=== PATIENT | female | born 1960 | race Caucasian/White ===

== ENCOUNTER → 2023-06-29 | Outpatient (CLI) | payer SELFPAY ==
--- NOTE | 2023-06-29 12:40 | LES_PTH ---
PATIENT: LEAH CHRISTIAN LOC: [facility] U#:[id number] AGE/SX: 62/F ROOM: RE06/29/[address]: ADORE MARTINEZ MD : 1960 BED: DIS: 06/29/2023 SPEC #: [id number] RECD: 06/29/23 15:02 STATUS: CLRAI CHELSEA #: [id number] ISHAAN: 06/29/23 12:[address]: ADORE MARTINEZ DEPT: SURGICAL PATHOLOGY RECD BY: Beckie Allen Tissues: Skin of face, NOS Procedures: Surgery Specimen Level IV HEADER OPERATION: External biopsy right cheek PRE-OP DIAGNOSIS: Right cheek lesion TISSUE SUBMITTED: Right cheek lesion MICROSCOPIC DIAGNOSIS Right cheek lesion, biopsy: Subepithelial fibrosis, favor irritation fibroma. Acanthosis. Negative for atypia or malignancy. See comment. 07/03/2023 COMMENT Correlation with clinical findings and appropriate follow up are necessary. MICROSCOPIC DESCRIPTION Slides are reviewed. GROSS DESCRIPTION Received in fixative is one container labeled with the patient's name and designated cheek. The specimen consists of a round piece of isbell-white mucosal tissue measuring 0.5 x 0.4 x 0.2 cm. The specimen is inked, bisected and submitted entirely in one cassette. / SJ:rg 06/30/2023 TC:5 [facility]: [id number]
== END | disposition home or self-care (01) ==
LOC: LABSPEC 15:29
PROVIDERS: Referring Provider Dentist Oral and Maxillofacial Surgery; Visit Provider Dentist Oral and Maxillofacial Surgery
DX: L83 Acanthosis nigricans (principal)
CPT/HCPCS: 88305

== ENCOUNTER 2024-01-15 13:51 | Emergency (ER) | payer OTHER, SELFPAY ==
[2024-01-15 13:54] VITALS: BP 142/80; PULSE 88; RESP 18; TEMP 36.3; O2SAT 97; BMI 24.8
[2024-01-15 14:22] LABS: Absolute Lymphocyte Count 1.88 X10^3/uL (0.83-4.51); Absolute Neutrophil Count 3.1 X10^3/uL (2.0-7.7); Basophil# 0.01 X10^3/uL; Basophil% 0.2 % (0-1); Eosinophil# 0.02 X10^3/uL; Eosinophils% 0.4 % (0-5); Hematocrit 40.5 % (37-47); Hemoglobin 13.4 g/dL (12.0-15.0); Lymphocyte # 1.88 X10^3/ul (0.83-4.51); Lymphocyte % 35.5 % (19-41); Mean Corp Hgb Conc 33.1 g/dL (32-36); Mean Corpuscular Hgb 29.1 pg (27.0-32.0); Mean Platelet Vol. 9.8 fl (6.2-12.0); Monocyte% 5.7 % (0-10); NRBC Flagged by Analyzer 0 % (0-5); Neutrophil # 3.07 X10^3/uL (2.7-7.7); Platelet Count 274 K/mm3 (150-450); RBC Distribution Width CV 12.4 % (11.6-14.6); RBC Distribution Width SD 39.8 fl (35.1-43.9); White Blood Count 5.3 K/mm3 (4.4-11.0)
[2024-01-15 14:28] LABS: Bacteria 0 SEEN /hpf (None Seen); Mucous, Urine 0 SEEN /hpf (<or=2+); Red Blood Cells-Urine 0 SEEN /hpf (0-5); Squamous Epithelial Cells - UA 0 SEEN /hpf (5-10); White Blood Cells 0 SEEN /hpf (0-5)
[2024-01-15 14:35] LABS: AST(SGOT) 14 U/L (15-37); Alanine Aminotransfer ALT/SGPT 11 U/L (13-56); Albumin, Serum 3.8 g/dL (3.2-5.0); Alkaline Phosphatase 54 U/L (45-117); Anion Gap 5 (5-15); BUN 7 mg/dL (7-18); BUN/Creat Ratio 10.1 RATIO (10-20); Calcium,Total 9.7 mg/dL (8.5-10.1); Chloride 106 mmol/L (98-107); Creatinine, Serum 0.69 mg/dL (0.55-1.02); EST Glomerular Filtration Rate 91 mL/min (>60); Est Glom Filt Rate - Afr Amer 110 mL/min (>60); Estimated Creatinine Clearance 73.58 ml/min; Globulin 3.7 g/dL (2.2-4.2); Glucose 111 mg/dL (74-106); Potassium 3.6 mmol/L (3.5-5.1); Protein, Total 7.5 g/dL (6.4-8.2); Sodium Level 137 mmol/L (136-145)
[2024-01-15 14:39] LABS: Color, Urine Yellow (Yellow); Glucose, Dipstick Normal (Normal); Ketone-Dipstick 50 mg/dl (Negative); Leukocyte Esterase-Dipstick 25 /ul (Negative); Nitrite-Dipstick Negative (Negative); Occult Blood-Urine 25 /ul (Negative); Protein-Dipstick 15 mg/dl (Negative); Specific Gravity, Urine 1.025 (1.002-1.030); Urine Bilirubin Dipstick Negative (Negative); Urine Clarity Clear (Clear); Urine Urobilinogen Normal (Normal)
--- NOTE | 2024-01-15 14:56 | EDS_ITS ---
HPI <MERYL Granado - Last Filed: 01/15/24 19:53> HPI - GI History of Present Illness Chief Complaint: Abd Pain Narrative Narrative: Patient presenting with generalized abdominal pain that she has had intermittently since the end of October. She reports that her symptoms are most persistent in her left lower quadrant, right upper quadrant, and left upper quadrant. She was seen last week in [facility] but they were unable to perform a CT scan as their machine was down. She reports that she has had a decreased appetite, occasional reflux symptoms, and her reports concerns that she is losing weight. She has had intermittent loose stools. She has previous abdominal surgeries that include tubal ligation and hernia repair. She denies fevers, chills, nausea, vomiting, melena, hematochezia, and urinary sy mptoms. PFSH <MERYL Granado - Last Filed: 01/15/24 19:53> PFSH Medical History Thyroid activity decreased Allergy/AdvReac Type Severity Reaction Status Date / Time prednisone Allergy Other Verified 01/15/24 13:53 Surgical History S/P hernia surgery Social History Smoking Status: Never smoker ROS <MERYL Granado - Last Filed: 01/15/24 19:53> ROS ED Constitutional Constitutional ED: Denies chills or fever(s) Cardiovascular Cardiovascular: Denies chest pain Respiratory/Chest Respiratory/Chest: Denies cough or dyspnea Gastrointestinal Gastrointestinal: Reports abdominal pain and diarrhea; Denies constipation, melena, nausea or vomiting Genitourinary Genitourinary ED: Denies dysuria, hematuria or urinary urgency Musculoskeletal Musculoskeletal: Denies arthralgias or myalgias Integumentary Denies rash Neurologic Neurologic: Denies weakness EXAM <MERYL Granado - Last Filed: 01/15/24 19:53> Physical Exam Const Vital Signs: 01/15/24 13:54 01/15/24 15:53 01/15/24 16:47 Temperature 97.4 F L 97.9 F 98.8 F Temperature Source Temporal Oral Pulse Rate 88 74 74 Respiratory Rate 18 16 16 Blood Pressure 142/80 H 125/73 H 124/78 H Blood Pressure Mean 100 90 93 Pulse Ox 97 99 98 Oxygen Delivery Method Room Air Room Air Positive well nourished, well developed and no apparent distress General Appearance ED: well developed HEENT Reports normocephalic and head/scalp atraumatic Mouth ED: Yes moist mucous membranes normal Eyes PERRL and EOMs intact bilaterally Neck full ROM and supple Chest Wall inspection of chest normal Resp normal respiratory effort and clear to auscultation bilaterally Cardio regular rate and regular rhythm GI soft to palpation, non-tender, non-distended and no masses GI Narrative: no Uribe sign, no rigidity or guarding, negative McBurney's point tenderness Back/Spine normal ROM and normal to inspection Extremity normal to inspection and full ROM Neuro oriented x3, CN's II-XII intact bilaterally, moves all extremities, no focal motor deficits and no sensory deficits noted Sensorium / Orientation: awake and alert Psych mental status grossly normal and thought process normal Skin no rashes or lesions noted and no wounds <Dr. Rowdy Woods DO - Last Filed: 01/15/24 23:33> Physical Exam Const Vital Signs: 01/15/24 13:54 01/15/24 15:53 01/15/24 16:47 Temperature 97.4 F L 97.9 F 98.8 F Temperature Source Temporal Oral Pulse Rate 88 74 74 Respiratory Rate 18 16 16 Blood Pressure 142/80 H 125/73 H 124/78 H Blood Pressure Mean 100 90 93 Pulse Ox 97 99 98 Oxygen Delivery Method Room Air Room Air [facility] <MERYL Granado - Last Filed: 01/15/24 19:53> [facility] Narrative Medical decision making narrative: Patient presenting due to generalized abdominal pain she has had intermittently over the past 2 months. She has seen her PCP for this, they thought that maybe it was due to her thyroid. She has not had any abdominal imaging. She went to [facility] last week and they were unable to perform a CT scan. She is requesting that this be performed today. Abdominal labs obtained to rule out leukocytosis, anemia, electrolyte abnormality, KENIA, pancreatitis, UTI, and hepatobiliary etiology. Labs overall are unremarkable. CT scan negative for any acute findings. Given she has had this chronic abdominal pain I do think she would benefit from a GI referral, I will refer her to Dr. Moyer and she will be discharged home in stable condition. I did encourage she follow-up with her PCP as well. Lab Data Attestation: I reviewed the patient's lab results. Labs: Laboratory Results - last 24 hr 01/15/24 01/15/24 14:10 14:20 WBC 5.3 RBC 4.60 Hgb 13.4 Hct 40.5 MCV 88.0 MCH 29.1 MCHC 33.1 RDW Std Deviation 39.8 RDW Coeff of Harriet 12.4 Plt Count 274 MPV 9.8 Immature Gran % (Auto) 0.200 Neut % (Auto) 58.0 Lymph % (Auto) 35.5 Kane % (Auto) 5.7 Eos % (Auto) 0.4 Baso % (Auto) 0.2 Absolute Neuts (auto) 3.1 Absolute Lymphs (auto) 1.88 Nucleated RBC % 0 Sodium 137 Potassium 3.6 Chloride 106 Carbon Dioxide 26.0 Anion Gap 5 BUN 7 Creatinine 0.69 Estim Creat Clear Calc 73.58 Est GFR (MDRD) Af Amer 110 Est GFR (MDRD) Non-Af 91 BUN/Creatinine Ratio 10.1 Glucose 111 H Calcium 9.7 Total Bilirubin 0.80 AST 14 L ALT 11 L Alkaline Phosphatase 54 Total Protein 7.5 Albumin 3.8 Globulin 3.7 Albumin/Globulin Ratio 1.0 Urine Color Yellow Urine Clarity Clear Urine pH 5.0 Ur Specific [place] 1.025 Urine Protein 15 H Urine Glucose (UA) Normal Urine Ketones 50 H Urine Occult Blood 25 H Urine Nitrite Negative Urine Bilirubin Negative Urine Urobilinogen Normal Ur Leukocyte Esterase 25 H Urine RBC 0 SEEN Urine WBC 0 SEEN Ur Squamous Epith Cells 0 SEEN Urine Bacteria 0 SEEN Urine Mucus 0 SEEN Radiography Diagnostic Testing: Clinical Impression(s) from Imaging Studies Abdomen/Pelvis CT 01/15/24 15:05 IMPRESSION: 1. No acute abdominal or pelvic abnormality. 2. Diverticulosis coli. 3. Right L5 spondylolysis with grade 1 spondylolisthesis Electronically Signed: Dillon Alexander MD at 15:54 EDT , <Dr. Rowdy Woods, DO - Last Filed: 01/15/24 23:33> [facility] Narrative Medical decision making narrative: Patient presenting due to generalized abdominal pain she has had intermittently over the past 2 months. She has seen her PCP for this, they thought that maybe it was due to her thyroid. She has not had any abdominal imaging. She went to [facility] last week and they were unable to perform a CT scan. She is requesting that this be performed today. Abdominal labs obtained to rule out leukocytosis, anemia, electrolyte abnormality, KENIA, pancreatitis, UTI, and hepatobiliary etiology. Labs overall are unremarkable. CT scan negative for any acute findings. Given she has had this chronic abdominal pain I do think she would benefit from a GI referral, I will refer her to Dr. Moyer and she will be discharged home in stable condition. I did encourage she follow-up with her PCP as well. ED attending note: I evaluated the patient in conjunction with the CHARITY. I agree with his/her statements and above findings. I have personally performed a face to face assessment of the patient and have reviewed the CHARITY Note. I performed a substantive portion of the visit including all aspects of the following. I personally saw the patient performed chart review, physical exam, reviewed labs, imaging (if obtained), and formulated a treatment and management plan. This note was generated with [employer] dictation software. It may contain incorrect words, spelling, and punctuation that were not noted in review of the chart prior to signing. Lab Data Labs: Laboratory Results - last 24 hr 01/15/24 01/15/24 14:10 14:20 WBC 5.3 RBC 4.60 Hgb 13.4 Hct 40.5 MCV 88.0 MCH 29.1 MCHC 33.1 RDW Std Deviation 39.8 RDW Coeff of Harriet 12.4 Plt Count 274 MPV 9.8 Immature Gran % (Auto) 0.200 Neut % (Auto) 58.0 Lymph % (Auto) 35.5 Kane % (Auto) 5.7 Eos % (Auto) 0.4 Baso % (Auto) 0.2 Absolute Neuts (auto) 3.1 Absolute Lymphs (auto) 1.88 Nucleated RBC % 0 Sodium 137 Potassium 3.6 Chloride 106 Carbon Dioxide 26.0 Anion Gap 5 BUN 7 Creatinine 0.69 Estim Creat Clear Calc 73.58 Est GFR (MDRD) Af Amer 110 Est GFR (MDRD) Non-Af 91 BUN/Creatinine Ratio 10.1 Glucose 111 H Calcium 9.7 Total Bilirubin 0.80 AST 14 L ALT 11 L Alkaline Phosphatase 54 Total Protein 7.5 Albumin 3.8 Globulin 3.7 Albumin/Globulin Ratio 1.0 Urine Color Yellow Urine Clarity Clear Urine pH 5.0 Ur Specific [place] 1.025 Urine Protein 15 H Urine Glucose (UA) Normal Urine Ketones 50 H Urine Occult Blood 25 H Urine Nitrite Negative Urine Bilirubin Negative Urine Urobilinogen Normal Ur Leukocyte Esterase 25 H Urine RBC 0 SEEN Urine WBC 0 SEEN Ur Squamous Epith Cells 0 SEEN Urine Bacteria 0 SEEN Urine Mucus 0 SEEN Radiography Diagnostic Testing: Clinical Impression(s) from Imaging Studies Abdomen/Pelvis CT 01/15/24 15:05 IMPRESSION: 1. No acute abdominal or pelvic abnormality. 2. Diverticulosis coli. 3. Right L5 spondylolysis with grade 1 spondylolisthesis Electronically Signed: Dillon Alexander MD at 15:54 EDT , Discharge Plan Triage Chief Complaint: Abd Pain ED Midlevel Provider: Dea Mayfield ED Provider: Rowdy Woods Dx/Rx/DC Orders Clinical Impression: Abdominal pain Instructions: Abdominal Pain Primary Care Provider: Christo Charlton Referrals: Christo Charlton MD [Primary Care Provider] - Comfort,DO Wei [Med Staff - Active Staff] - 1 Week Activity Restrictions/Additional Instructions: Please follow-up with your PCP. I have also given you a GI referral to follow- up with. Return for any worsening of your symptoms. Print Language: Upper Sorbian Disposition Disposition: Home, Self Care Discharge Date/Time: 01/15/24 16:48
--- NOTE | 2024-01-15 15:05 | CT_ITS ---
EXAM: CT ABDOMEN AND PELVIS WITH INTRAVENOUS CONTRAST CLINICAL INDICATION: abdominal pain TECHNIQUE: Helically acquired images were obtained of the abdomen and pelvis with intravenous contrast. This CT exam was performed using one or more of the following dose reduction techniques: automated exposure control, adjustment of the mA and/or kV according to patient size, and/or use of iterative reconstruction technique. CONTRAST: IV 100mL [id number] COMPARISON: No relevant prior studies available. FINDINGS: LOWER THORAX: Normal. Lung bases are clear. No cardiomegaly. No pericardial effusion. ABDOMEN: LIVER: Normal. Homogeneous. No focal mass. GALLBLADDER AND BILE DUCTS: Normal-appearing gallbladder. PANCREAS: Normal. No focal cystic or solid mass. SPLEEN: Normal. Normal size without focal cystic or solid mass. ADRENALS: Normal. No nodules. KIDNEYS AND URETERS: Normal. Normal renal size and position. No hydronephrosis. STOMACH AND BOWEL: Diverticulosis of the colon noted without evidence of acute diverticulitis. PELVIS: APPENDIX: Appendix is visualized and normal in appearance. BLADDER: Normal. REPRODUCTIVE: Unremarkable as visualized. No mass. ABDOMEN and PELVIS: INTRAPERITONEAL SPACE: Normal. No ascites or other fluid collection. No free air. BONES/JOINTS: Right L5 spondylolysis noted with grade1 spondylolisthesis. SOFT TISSUES: Normal. No discrete abdominal or pelvic wall hernia. VASCULATURE: Normal. Abdominal aorta is non-dilated. LYMPH NODES: Normal. No enlarged lymph nodes. CT/Abdomen/Pelvis W IV Cont ONLY IMPRESSION: 1. No acute abdominal or pelvic abnormality. 2. Diverticulosis coli. 3. Right L5 spondylolysis with grade 1 spondylolisthesis Electronically Signed: Dillon Alexander MD at 15:54 EDT ,
[2024-01-15] MEDS: 0.9% Normal Saline (500mL Bag) 500 ML 999 ML IV (15:47)
[2024-01-15 15:53] VITALS: BP 125/73; PULSE 74; RESP 16; TEMP 36.6; O2SAT 99
[2024-01-15 16:47] VITALS: BP 124/78; PULSE 74; RESP 16; TEMP 37.1; O2SAT 98
== END 2024-01-15 16:48 | disposition home or self-care (01) ==
PROVIDERS: Emergency Provider Emergency Medicine; PCP Family Medicine; Visit Provider Emergency Medicine
DX: R10.9 Unspecified abdominal pain (principal); R19.7 Diarrhea, unspecified
CPT/HCPCS: 74177; 80053; 81001; 85025; 96360; 99282; J7040; Q9967; A4216